=== PATIENT | male | born 1950 | race African-American/Black ===

== ENCOUNTER 2025-03-07 08:21 | Emergency (ER) | payer MEDICARE, MEDICAID ==
[~2025-03-07] VITALS: Ht 182.9 cm; Wt 120.0 kg
[2025-03-07 08:24] VITALS: O2SAT 100
[2025-03-07] MEDS: FAMOTIDINE 20MG TABLET PO ONE (10:42)
[2025-03-07] MEDS: ONDANSETRON 4MG ODT PO ONE (10:42)
[2025-03-07] MEDS ORDERED: AMOX-494 MT (11:03)
[2025-03-07] MEDS ORDERED: ONDA4TAB50 PO (11:03)
[2025-03-07] MEDS ORDERED: BISM-77 MT (11:03)
[2025-03-07 11:42] VITALS: BP 129/79; PULSE 82; RESP 18; TEMP 36.9; O2SAT 100
== END 2025-03-07 11:43 | disposition home or self-care (01) ==
LOC: ER 08:21
DX: K52.9 Noninfective gastroenteritis and colitis, unspecified (principal); K04.7 Periapical abscess without sinus; R11.2 Nausea with vomiting, unspecified; E11.9 Type 2 diabetes mellitus without complications; I10 Essential (primary) hypertension; Z79.899 Other long term (current) drug therapy
CPT/HCPCS: 99283; 82962; Q0162